=== PATIENT | female | born 1995 | race Caucasian/White ===

== ENCOUNTER 2021-07-16 21:51 | Emergency (ER) | payer SELFPAY ==
[2021-07-16 22:35] LABS: HEMOGLOBIN 15.1 gm/dl (12.3-15.3); RED BLOOD COUNT 4.86 M/UL (4.00-5.10); WHITE BLOOD COUNT 6.2 K/UL (4.5-11.0)
[2021-07-16 23:07] LABS: BUN/CREATININE RATIO 8 (0-10)
[2021-07-17] MEDS ORDERED: OMNICEF 300 MG300 MG PO (00:13)
== END 2021-07-17 01:30 | disposition home or self-care (01) ==
LOC: ER1 21:51
PROVIDERS: Physician Assistant Medical
DX: N39.0 Urinary tract infection, site not specified (principal); Z88.2 Allergy status to sulfonamides; Z88.4 Allergy status to anesthetic agent
CPT/HCPCS: 80053; 81001; 83605; 84703; 85025; 87040; 96374; 99283; J0696; J7030